=== PATIENT | female | born 1990 | race Caucasian/White ===

== ENCOUNTER 2016-08-05 08:48 | Emergency (ER) | payer OTHER ==
[~2016-08-05 08:48] MED LIST: BACTRIM DS TABL1 TA1 PO; KEFLEX500 MG PO; MOTRIN600 M1 PO
== END 2016-08-05 09:12 | disposition home or self-care (01) ==
LOC: SED 08:48
DX: N75.0 Cyst of Bartholin's gland (principal)
CPT/HCPCS: 99282

== ENCOUNTER 2016-08-05 21:54 | Emergency (ER) | payer OTHER | END 2016-08-05 22:05 | disposition home or self-care (01) | LOC: CFTX 21:54 | DX: N75.1 Abscess of Bartholin's gland (principal) | CPT/HCPCS: 56420; 87070; 87077; 87205; 99283 ==

== ENCOUNTER 2016-10-30 12:13 | Emergency (ER) | payer OTHER ==
[2016-10-30 14:03] LABS: URINE SOURCE CLEAN CATCH
[2016-10-30 14:26] LABS: URINE APPEARANCE CLEAR; URINE BILIRUBIN NEG (NEG); URINE BLOOD NEG (NEG); URINE COLOR YELLOW; URINE GLUCOSE NEG (NORM); URINE KETONE NEG (NEG); URINE LEUKOCYTE ESTERASE NEG (NEG); URINE NITRATE NEG (NEG); URINE PROTEIN NEG (NEG); URINE UROBILINOGEN 0.2 MG/DL (NORM)
[2016-10-30 14:33] LABS: MICRO INDICATED? NO
[2016-10-31 21:57] LABS: CHLAMYDIA TRACH Not Detected (Not Detected); N GONOR Not Detected (Not Detected)
== END 2016-10-30 15:22 | disposition home or self-care (01) ==
LOC: SED 12:13
PROVIDERS: Nurse Practitioner
DX: N89.8 Other specified noninflammatory disorders of vagina (principal); R30.0 Dysuria; N90.89 Other specified noninflammatory disorders of vulva and perineum; F32.9 Major depressive disorder, single episode, unspecified
CPT/HCPCS: 81003; 87210; 87253; 87491; 87591; 87808; 87905; 99284